=== PATIENT | female | born 1970 | race Caucasian/White ===

== ENCOUNTER 2020-08-11 07:48 | Outpatient (REF) | payer OTHER, SELFPAY ==
--- NOTE | 2020-08-11 | MM_ITS ---
EXAMINATION: MM SCREENING DIGITAL BREAST TOMOSYNTHESIS, BILATERAL CLINICAL INFORMATION: Screening. Asymptomatic. The lifetime risk of breast cancer based on the Tyrer-Cuzick Model is 8%. COMPARISON: Mammography: 08/06/2019, 08/24/2016 TECHNIQUE: Digital breast tomosynthesis is performed in both the craniocaudal and mediolateral oblique views along with computer-aided detection (CAD). Synthesized 2D images are generated from the tomosynthesis. FINDINGS: There are scattered areas of fibroglandular density (ACR BI-RADS breast composition Category b). Breast tissue composition borders on predominantly fatty. There are scattered fibroglandular densities in the bilateral anterior breasts similar to prior study. There is no developing density or interval mass or architectural abnormality. The axillary nodes and skin contours are unremarkable. No significant changes. IMPRESSION: No mammographic evidence of malignancy. ASSESSMENT: BI-RADS 1: Negative RECOMMENDATION: Routine annual mammography screening. This patient's information was entered into a reminder system with a target due date for their next mammogram.
== END 2020-08-11 07:49 | disposition home or self-care (01) ==
LOC: HO.MAMMO 07:48
PROVIDERS: PCP Internal Medicine; Visit Provider Internal Medicine
DX: Z12.31 Encounter for screening mammogram for malignant neoplasm of breast (principal)
CPT/HCPCS: 77063; 77067; 78014

== ENCOUNTER 2020-10-13 15:00 | Outpatient (RCR) | payer OTHER, SELFPAY | END 2020-10-15 23:55 | disposition home or self-care (01) | LOC: HO.PAOS 15:00 | PROVIDERS: Visit Provider Counselor Mental Health | DX: F32.2 Major depressive disorder, single episode, severe without psychotic features (principal); F43.10 Post-traumatic stress disorder, unspecified; Z63.4 Disappearance and death of family member | CPT/HCPCS: 90832; 90834 ==

== ENCOUNTER 2020-11-18 07:30 | Outpatient (REF) | payer OTHER, SELFPAY ==
[2020-11-18 07:53] LABS: COVID-19 Test Negative (Negative); IDNOW Serial# 55D5AD1C
== END 2020-11-18 07:31 | disposition home or self-care (01) ==
LOC: HO.EMPCOV 07:30
PROVIDERS: Visit Provider Internal Medicine
DX: Z20.822 Contact with and (suspected) exposure to COVID-19 (principal)
CPT/HCPCS: 36415; 87635; C9803

== ENCOUNTER 2020-11-24 06:40 | Outpatient (REF) | payer OTHER, SELFPAY ==
[2020-11-24 06:57] LABS: COVID-19 Test Negative (Negative)
== END 2020-11-24 06:41 | disposition home or self-care (01) ==
LOC: HO.EMPCOV 06:40
PROVIDERS: Visit Provider Internal Medicine
DX: Z20.822 Contact with and (suspected) exposure to COVID-19 (principal)
CPT/HCPCS: 36415; 87635; C9803

== ENCOUNTER 2020-12-18 13:41 | Outpatient (REF) | payer OTHER, SELFPAY ==
[2020-12-18 14:00] LABS: COVID-19 Test Negative (Negative); IDNOW Serial# 55D5AD1C
== END 2020-12-18 13:42 | disposition home or self-care (01) ==
LOC: HO.EMPCOV 13:41
PROVIDERS: Visit Provider Internal Medicine
DX: Z20.822 Contact with and (suspected) exposure to COVID-19 (principal)
CPT/HCPCS: 36415; 87635; C9803

== ENCOUNTER 2020-12-25 12:08 | Outpatient (REF) | payer OTHER, SELFPAY ==
[2020-12-25 12:27] LABS: COVID-19 Test Negative (Negative)
== END 2020-12-25 12:09 | disposition home or self-care (01) ==
LOC: HO.LAB 12:08
PROVIDERS: Visit Provider Internal Medicine
DX: Z20.822 Contact with and (suspected) exposure to COVID-19 (principal)
CPT/HCPCS: 36415; 87635; C9803

== ENCOUNTER 2022-03-04 07:24 | Outpatient (REF) | payer OTHER, SELFPAY ==
[2022-03-04 11:57] LABS: COVID-19 Test Negative (Negative); IDNOW Serial# 16C4AD1C
== END 2022-03-04 07:25 | disposition home or self-care (01) ==
LOC: HO.LAB 07:24
PROVIDERS: Visit Provider Internal Medicine
DX: Z20.822 Contact with and (suspected) exposure to COVID-19 (principal)
CPT/HCPCS: 87635; C9803